=== PATIENT | male | born 1965 ===

== ENCOUNTER 2017-02-20 22:02 | Emergency (ER) | payer SELFPAY ==
[2017-02-20 22:07] VITALS: PULSE 71; RESP 16; TEMP 98.4; O2SAT 100
[2017-02-20] MEDS ORDERED: Sodium Chloride 0.9% 1,000 ML IV STA (22:39)
--- NOTE | 2017-02-20 22:41 | ED PDOC ---
HPI: Abdomen Time Seen by Provider: 02/20/17 22:20 Chief Complaint (Nursing): Abdominal Pain Chief Complaint (Provider): abdominal pain History Per: Patient History/Exam Limitations: no limitations Onset/Duration Of Symptoms: Days (2) Current Symptoms Are (Timing): Still Present Location Of Pain/Discomfort: LLQ Quality Of Discomfort: "Pain" Associated Symptoms: Nausea, Constipation. denies: Fever, Chills, Vomiting, Diarrhea, Urinary Symptoms Additional History Per: Patient Additional Complaint(s): 51 y/o male no past medical history presents with left lower abdominal pain x 2 days. Associated nausea, constipation. Patient states symptoms started after eating calamari. States pain initially left lower back, now in left lower front. Denies fever, vomiting, chest pain, shortness of breath, palpitations, dysuria, hematuria, recent travel. Past Medical History Reviewed: Historical Data, Nursing Documentation, Vital Signs Vital Signs: Last Vital Signs Temp 98.4 F 02/20/17 22:05 Pulse 71 02/20/17 22:05 Resp 16 02/20/17 22:05 BP 133/80 02/21/17 01:51 Pulse Ox 100 02/21/17 02:37 - Medical History PMH: No Chronic Diseases - Surgical History Surgical History: No Surg Hx - Family History Family History: States: Unknown Family Hx - Home Medications Home Medications: Ambulatory Orders Medication Instructions Recorded Ciprofloxacin HCl [Cipro] 500 mg PO BID #9 tab 02/21/17 Ibuprofen [Motrin Tab] 800 mg PO Q8 PRN #20 tab 02/21/17 Tamsulosin [Flomax] 0.4 mg PO DAILY #10 cap 02/21/17 traMADol [Ultram] 50 mg PO Q8 PRN #10 tab 02/21/17 - Allergies Allergies/Adverse Reactions: Allergies Allergy/AdvReac Type Severity Reaction Status Date / Time No Known Allergies Allergy Verified 02/20/17 22:05 Review of Systems ROS Statement: Except As Marked, All Systems Reviewed And Found Negative Gastrointestinal: Positive for: Nausea, Abdominal Pain, Constipation Physical Exam - Reviewed Nursing Documentation Reviewed: Yes Vital Signs Reviewed: Yes - Physical Exam Appears: Positive for: Well, Non-toxic, No Acute Distress Head Exam: Positive for: ATRAUMATIC, NORMAL INSPECTION, NORMOCEPHALIC Skin: Positive for: Normal Color Eye Exam: Positive for: Normal appearance ENT: Positive for: Normal ENT Inspection Cardiovascular/Chest: Positive for: Regular Rate, Rhythm Respiratory: Positive for: Normal Breath Sounds Gastrointestinal/Abdominal: Positive for: Bowel Sounds, Soft, Tenderness (llq) Back: Positive for: Normal Inspection. Negative for: L CVA Tenderness, R CVA Tenderness Extremity: Positive for: Normal ROM Neurologic/Psych: Positive for: Alert, Oriented - Laboratory Results Result Diagrams: 02/20/17 22:52 02/20/17 23:00 - ECG O2 Sat by Pulse Oximetry: 100 - Progress ED Course And Treament: labs, urine, CT abd/pelvis, IV fluids, IV toradol EXAM: CT Abdomen and Pelvis With Intravenous Contrast CLINICAL HISTORY: The patient is a 51 years male; Pain; Abdominal pain; Localized; Left lower quadrant (llq); Additional info: Left lower abdominal pain 02/20/2017 11:35 PM TECHNIQUE: Axial computed tomography images of the abdomen and pelvis with intravenous contrast. This CT exam was performed using one or more of the following dose reduction techniques : automated exposure control, adjustment of the mA and/or kV according to patient size, and/ or use of iterative reconstruction technique. Coronal and sagittal reformatted images were created and reviewed. CONTRAST: 95 mL of [id number] administered intravenously. COMPARISON: No relevant prior studies available. FINDINGS: Lower thorax: Small hiatal hernia. ABDOMEN: Liver: Unremarkable. No mass. Gallbladder and bile ducts: Cholelithiasis. Pancreas: Unremarkable. No ductal dilation. Spleen: Unremarkable. No splenomegaly. Adrenals: Bilateral adrenal thickening. Kidneys and ureters: 3 mm calculus in the distal left ureter/ureterovesical junction causing moderate proximal hydroureteronephrosis. There is associated perinephric/ periureteral fat stranding, likely related to passage of calculus. Superimposed infection is not excluded. Clinical correlation is recommended. There are renal hypodensities that cannot be accurately characterized on the current examination. There is delayed enhancement of the left kidney. Retroaortic left renal vein. Stomach and bowel: Hyperdense material in the cecum, probably ingested material. Appendix: No findings to suggest acute appendicitis. PELVIS: Bladder: Unremarkable. Reproductive: Unremarkable as visualized. ABDOMEN and PELVIS: Intraperitoneal space: Unremarkable. No free air. No significant fluid collection. Bones/joints: No acute fracture. No dislocation. Soft tissues: Small umbilical hernia. Vasculature: See above. Lymph nodes: Unremarkable. No enlarged lymph nodes. IMPRESSION: 1. 3 mm calculus in the distal left ureter/ureterovesical junction causing moderate proximal hydroureteronephrosis. There is associated perinephric/periureteral fat stranding, likely related to passage of calculus. Superimposed infection is not excluded. Clinical correlation is recommended. 2. Cholelithiasis. Patient educated on findings, flomax and cipro dose given in ED. Patient discharged with rx flomax, cipro, ibuprofen, tramadol. Patient educated on risk of narcotic abuse/dependence/overdose; advised to use as needed for severe pain only. Patient demonstrates full understanding. Patient given strainer with instructions on use. Advised follow up urology. Return to ED for worsening/concerning symptoms. Disposition - Clinical Impression Clinical Impression: Ureteral stone - Patient ED Disposition Is Patient to be Admitted: No Counseled Patient/Family Regarding: Studies Performed, Diagnosis, Need For Followup, Rx Given - Disposition Referrals: [facility] [Outside] Margarito Culver MD [Medical Doctor] - Disposition: Routine/Home Disposition Time: 03:25 Condition: IMPROVED Prescriptions: Ciprofloxacin HCl [Cipro] 500 mg PO BID #9 tab Ibuprofen [Motrin Tab] 800 mg PO Q8 PRN #20 tab PRN Reason: Pain, Moderate (4-7) Tamsulosin [Flomax] 0.4 mg PO DAILY #10 cap traMADol [Ultram] 50 mg PO Q8 PRN #10 tab PRN Reason: Pain, Severe (8-10) Instructions: Kidney Stones (ED), Renal Colic (ED), How to Strain Your Urine ( ED)
[2017-02-20 23:15] LABS: RBC URINE 54 /hpf (0-3); URINE BILIRUBIN NEGATIVE (NEGATIVE); URINE BLOOD SMALL (NEGATIVE); URINE COLOR YELLOW (YELLOW); URINE GLUCOSE (UA) NEG (Normal); URINE KETONE 20 mg/dL (NEGATIVE); URINE LEUKOCYTE ESTERASE NEG Leu/uL (Negative); URINE PROTEIN 30 mg/dL (NEGATIVE); URINE UROBILINOGEN 0.2-1.0 mg/dL (0.2-1.0); WBC URINE 1 /hpf (0-5)
[2017-02-20 23:19] LABS: BASO % 0.2 % (0.0-2.0); EOS % 0.2 % (0.0-4.0); HEMATOCRIT 43.4 % (35.0-51.0); LYMPH # 0.9 K/uL (1.0-4.3); LYMPH % 7.8 % (20.0-40.0); MEAN CELL VOLUME 93.5 fl (80.0-94.0); MEAN CORPUSCULAR HEMOGLOBIN 30.6 pg (27.0-31.0); MEAN CORPUSCULAR HGB CONC 32.8 g/dL (33.0-37.0); MEAN PLATELET VOLUME 8.2 fl (7.2-11.7); MONO # 0.9 K/uL (0.0-0.8); MONO % 8.1 % (0.0-10.0); NEUT # 9.8 K/uL (1.8-7.0); NEUT % 83.7 % (50.0-75.0); NRBC % 0.1 % (0.0-0.0); PLATELET COUNT 175 K/uL (130-400); RED CELL DISTRIBUTION WIDTH 13.4 % (11.5-14.5); WHITE BLOOD COUNT 11.7 K/uL (4.8-10.8)
[2017-02-20 23:35] LABS: ALB/GLOB RATIO 1.3 (1.0-2.1); BILIRUBIN,TOTAL 0.9 mg/dl (0.2-1.3); TOTAL PROTEIN 7.8 G/DL (6.3-8.2)
[2017-02-21] MEDS ORDERED: Sodium Chloride 0.9% 50 ML IV ONE (01:16)
[2017-02-21] MEDS ORDERED: Iohexol 300 100 ML IJ ONE (01:16)
[2017-02-21 01:45] LABS: NEUTROPHIL 84 % (42-75); TOTAL CELLS COUNTED 100
[2017-02-21 01:51] VITALS: BP 133/80
[2017-02-21] MEDS ORDERED: Sodium Chloride 0.9% 1,000 ML IV STA (02:04)
--- NOTE | 2017-02-21 12:07 | CT ---
PROCEDURE: CT Abdomen and Pelvis with contrast HISTORY: left lower abdominal pain COMPARISON: None available. TECHNIQUE: Contrast dose: 95 cc Omnipaque 300 Radiation dose: Total exam DLP = 689.97 mGy-cm. This CT exam was performed using one or more of the following dose reduction techniques: Automated exposure control, adjustment of the mA and/or kV according to patient size, and/or use of iterative reconstruction technique. FINDINGS: LOWER THORAX: Mild bibasilar atelectasis. No visible pleural effusion or pneumothorax. Small hiatal hernia. LIVER: Unremarkable. GALLBLADDER AND BILE DUCTS: Cholelithiasis. PANCREAS: Unremarkable. SPLEEN: Unremarkable. ADRENALS: Mild adrenal gland hypertrophy. KIDNEYS AND URETERS: Too small to characterize 5 mm and 7 mm right renal hypodensities, statistically likely cysts. Delayed enhancement of the left kidney. Left-sided hydronephrosis and hydroureter to the level of obstructing ureteral calculus at the UVJ. Mild perinephric and periureteral stranding likely related to passage of calculus. No right-sided hydronephrosis. VASCULATURE: Retro aortic left renal vein. No aortic aneurysm. BOWEL: Stomach is nondistended. Lack of oral contrast limits evaluation for bowel pathology. Bowel loops appear within normal limits of caliber without evidence of obstruction. Hyperdense material at the cecum, likely ingested material. APPENDIX: The appendix appears within normal limits of caliber. No secondary signs of acute appendicitis. PERITONEUM: No significant free fluid. No definite free air. LYMPH NODES: No bulky adenopathy. BLADDER: See above. REPRODUCTIVE: The prostate gland measures approximately 3.3 x 3.9 cm. BONES: Mild degenerative changes. OTHER FINDINGS: Small fat containing umbilical hernia. IMPRESSION: Left-sided hydronephrosis and hydroureter to the level of obstructing ureteral calculus at the UVJ. Mild perinephric and periureteral stranding likely related to passage of calculus. Delayed enhancement of the left kidney. Superimposed infection cannot be excluded. Correlate clinically. Too small to characterize 5 mm and 7 mm right renal hypodensities, statistically likely cysts. Cholelithiasis. Additional findings as above. Preliminary impression was provided by virtual radiologic.
== END 2017-02-21 03:33 | disposition home or self-care (01) ==
LOC: H.ER 22:02
DX: N20.0 Calculus of kidney (principal); R11.0 Nausea; K59.00 Constipation, unspecified
CPT/HCPCS: 74177; 80053; 81003; 85025; 99283; J1885; J7040; Q9967